=== PATIENT | male | born 1960 | race Caucasian/White ===

== ENCOUNTER 2021-05-04 12:49 | Emergency (ER) | payer MEDICARE, OTHER ==
[~2021-05-04 12:49] MED LIST: ALDACTONE25 MG PO; BUSPAR 10MG10 MG PO; CLARITIN10 MG PO; CRESTOR40 MG PO; ECOTRIN81 MG PO; GLUCOPHAGE1000 MG PO; HYDRALAZINE HC100 MG PO; IMDUR ER TAB 6060 MG PO; SYNTHROID25 MCG PO; TRANDATE 100 M100 MG PO; VIAGRA50 MG PO
[2021-05-04 13:28] LABS: HEMOGLOBIN 14.5 gm/dl (14.0-17.5); RED BLOOD COUNT 4.79 M/UL (4.20-5.50); WHITE BLOOD COUNT 9.2 K/UL (4.5-11.0)
[2021-05-04 13:46] LABS: BUN/CREATININE RATIO 16 (0-10)
[2021-05-04] MEDS ORDERED: HYDROCODON-ACE1 EAC4 PO (15:15)
[2021-05-04] MEDS ORDERED: ONDANSETRON ODT4 MG SL (15:32)
[2021-05-04] MEDS ORDERED: FLOMAX 0.4 MG0.4 MG PO (15:32)
== END 2021-05-04 15:45 | disposition home or self-care (01) ==
LOC: ER1 12:49
PROVIDERS: Physician Assistant
DX: N13.2 Hydronephrosis with renal and ureteral calculous obstruction (principal); K76.89 Other specified diseases of liver; E10.9 Type 1 diabetes mellitus without complications; I10 Essential (primary) hypertension; Z87.442 Personal history of urinary calculi
CPT/HCPCS: 80053; 81001; 83690; 85025; 87086; 96374; 96375; 99284; J1170; J1885; J2270; J2405